=== PATIENT | female | born 1995 | race American Indian/Alaskan Native ===

== ENCOUNTER 2022-05-13 19:47 | Emergency (ER) | payer SELFPAY ==
--- NOTE | 2022-05-13 22:05 | Cat Scan Report ---
CT BRAIN: 05/13/2022 INDICATION / CLINICAL INFORMATION: HEAD INJURY. COMPARISON: None available. FINDINGS: BRAIN/INTRACRANIAL STRUCTURES: Unenhanced CT images of the brain demonstrate no evidence of acute int racranial abnormality. Ventricles and sulci are normal in size and shape. There is no evidence of hemorrhage or mass. There are no abnormal extra-axial fluid collections. A right frontal scalp hematoma is present extending down into the supraorbital region. There is no e vidence of acute osseous injury. EXTRACRANIAL STRUCTURES: Unremarkable. IMPRESSION: No acute intracranial abnormality. Scalp injury noted All CT scans at this location are performed using dose reduction to ALARA by means of automated expos ure control. Signer Name: Abraham Bello MD Signed: 05/13/2022 10:00 PM Workstation Name: [id number]
[2022-05-13] MEDS ORDERED: oxyCODONE /ACETAMINOPHEN 5-325MG TAB PO ONE (22:54)
--- NOTE | 2022-05-13 23:20 | XRay Report ---
RIGHT FOOT 3 VIEW(S) INDICATION / CLINICAL INFORMATION: blunt trauma COMPARISON: None available. FINDINGS: No fracture, dislocation, or significant soft tissue abnormality is demonstrated. No radiopaque forei gn bodies are identified. IMPRESSION: 1. No acute pathology. No significant abnormality. Signer Name: Dirk Dumont II, MD Signed: 05/13/2022 11:16 PM Workstation Name: [id number]
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
[2022-05-14] MEDS ORDERED: oxyCODONE /ACETAMINOPHEN 5-325MG TAB PO ONE (01:04)
[2022-05-14 08:14] VITALS: BP 127/81
== END 2022-05-14 00:49 | disposition home or self-care (01) ==
LOC: ED 19:47
DX: S00.83XA Contusion of other part of head, initial encounter (principal); S90.31XA Contusion of right foot, initial encounter; X58.XXXA Exposure to other specified factors, initial encounter; Y93.89 Activity, other specified; Y92.89 Other specified places as the place of occurrence of the external cause; Y99.8 Other external cause status
CPT/HCPCS: 70450; 99284